=== PATIENT | male | born 1985 | race Caucasian/White ===

== ENCOUNTER 2017-06-19 11:12 | Outpatient (CLI) ==
[2016-06-10 23:09] VITALS: BMI 29.0
[2017-06-19 12:42] LABS: BASOPHILS # (AUTO) 0.1 K/uL (0-0.2); EOSINOPHILS # (AUTO) 0.2 K/ul (0.0-0.7); EOSINOPHILS % (AUTO) 2.2 % (0.0-7.0); HEMATOCRIT 46.1 % (42.0-52.0); HEMOGLOBIN 16.1 g/dl (14.0-18.0); IMMATURE GRANULOCYTE % (AUTO) 0.4 % (0.0-5.0); LYMPHOCYTES # (AUTO) 2.6 K/uL (0.60-3.4); LYMPHOCYTES % (AUTO) 34.5 (10.0-50.0); MEAN CORPUSCULAR HGB CONC 34.9 (31.8-35.4); MEAN CORPUSCULAR VOLUME 88.7 fl (80.0-94.0); MONOCYTES # (AUTO) 0.6 K/uL (0.4-2.0); MONOCYTES % (AUTO) 8.1 (0-10); NEUTROPHILS # (AUTO) 4.1 K/ul (2.0-6.9); NEUTROPHILS % (AUTO) 53.8; PLATELET COUNT 303 10^3/uL (140-440); WHITE BLOOD COUNT 7.62 K/ul (4.2-10.2)
[2017-06-19 13:35] LABS: ALBUMIN 4.1 g/dL (3.4-5.0); ALBUMIN/GLOBULIN RATIO 1.37; ANION GAP 18.2; BILIRUBIN,TOTAL 0.83 mg/dL (0.00-1.20); BUN/CREATININE RATIO 14.11; CALCIUM 9.2 mg/dL (8.2-10.2); CHOL/HDL RATIO 5.4 (4.5-6.4); CREATININE 0.85 mg/dL (0.60-1.10); POTASSIUM 4.2 mmol/L (3.5-5.1); TOTAL PROTEIN 7.1 g/dL (6.4-8.2)
== END 2017-06-19 11:13 | disposition home or self-care (01) ==
LOC: LAB 11:12
PROVIDERS: ATTEND Nurse Practitioner Family
DX: F32.9 Major depressive disorder, single episode, unspecified (principal)
CPT/HCPCS: 36415; 80053; 80061; 84443; 85025

== ENCOUNTER 2017-12-25 11:24 | Outpatient (CLI) ==
[2016-06-10 23:09] VITALS: BMI 29.0
== END 2017-12-25 11:25 | disposition home or self-care (01) ==
LOC: LAB 11:24
PROVIDERS: ATTEND Nurse Practitioner Family
DX: F32.9 Major depressive disorder, single episode, unspecified (principal); E66.9 Obesity, unspecified
CPT/HCPCS: 36415; 80053; 80061; 84439; 84443; 85025; 93005; 93010

== ENCOUNTER 2018-02-12 14:42 | Outpatient (CLI) ==
[2016-06-10 23:09] VITALS: BMI 29.0
== END 2018-02-12 14:43 | disposition home or self-care (01) ==
LOC: RHC-LAB 14:42
PROVIDERS: ATTEND Emergency Medicine
DX: J40 Bronchitis, not specified as acute or chronic (principal)
CPT/HCPCS: 87651